=== PATIENT | male | born 1975 | race Caucasian/White ===

== ENCOUNTER 2019-11-28 04:00 | Emergency (ER) | payer OTHER ==
[~2019-11-28] VITALS: Ht 180.3 cm; Wt 113.4 kg
[2019-11-28 05:10] LABS: INFLUENZA A ANTIGEN Negative (Negative); INFLUENZA B ANTIGEN Negative (Negative)
[2019-11-28] MEDS ORDERED: PRINIVIL20 M1 PO (05:42)
[2019-11-28 06:02] VITALS: BP 141/88
== END 2019-11-28 06:02 | disposition home or self-care (01) ==
LOC: M.ERS 04:00
PROVIDERS: Emergency Medicine
DX: I10 Essential (primary) hypertension (principal); F17.210 Nicotine dependence, cigarettes, uncomplicated